=== PATIENT | female | born 1955 | race Caucasian/White ===

== ENCOUNTER → 2018-05-17 | Outpatient (CLI) | payer OTHER ==
--- NOTE | 2018-05-19 10:51 | MM ---
Reason for exam: screening (asymptomatic). Last mammogram was performed 1 year and 10 months ago. History: Patient is postmenopausal. Family history of breast cancer in paternal aunt and breast cancer in paternal cousin. Physical Findings: A clinical breast exam by your physician is recommended on an annual basis and results should be correlated with mammographic findings. MG 3D Screening Mammo W/Cad Bilateral CC and MLO view(s) were taken. Prior study comparison: July 22, 2016, bilateral MG 3d screening mammo w/cad. September 25, 2014, bilateral MG screening mammo w CAD. The breast tissue is heterogeneously dense. This may lower the sensitivity of mammography. No suspicious abnormality. No significant changes when compared with prior studies. ASSESSMENT: Negative, BI-RAD 1 RECOMMENDATION: Routine screening mammogram of both breasts in 1 year.
== END | disposition home or self-care (01) ==
LOC: RADMAMWWP 12:35
PROVIDERS: ATTEND Family Medicine
DX: Z12.31 Encounter for screening mammogram for malignant neoplasm of breast (principal)
CPT/HCPCS: 77063; 77067

== ENCOUNTER 2019-02-20 12:43 | Emergency (ER) | payer OTHER ==
[2019-02-20 12:54] VITALS: RESP 18
[2019-02-20] MEDS ORDERED: ONDANSETRON 4 MG/2 ML VIAL IVP STA (13:19)
[2019-02-20] MEDS ORDERED: KETOROLAC 30 MG/ML 1 ML VIAL IVP STA (13:19)
[2019-02-20] MEDS ORDERED: SODIUM CHLORIDE 0.9% 1,000 ML IV STA ×2 (13:19)
[2019-02-20] MEDS ORDERED: MORPHINE SULFATE 4 MG/ML SYRINGE IV STA (13:19)
[2019-02-20 13:34] LABS: Basophils # (A) 0.1 k/uL (0-0.2); Basophils % (A) 1 %; Eosinophils # (A) 0.2 k/uL (0-0.7); Eosinophils % (A) 4 %; HCT 44.6 % (34.0-46.0); HGB 14.4 gm/dL (11.4-16.0); Lymphocytes # (A) 2.1 k/uL (1.0-4.8); Lymphocytes % (A) 35 %; MCH 27.5 pg (25.0-35.0); MCHC 32.3 g/dL (31.0-37.0); MCV 85.2 fL (80.0-100.0); Mean Platelet Volume 7.2; Monocytes # (A) 0.2 k/uL (0-1.0); Monocytes % (A) 4 %; Neutrophils # (A) 3.3 k/uL (1.3-7.7); Neutrophils % (A) 54 %; Platelet Count 307 k/uL (150-450); RBC 5.23 m/uL (3.80-5.40); RDW 14.2 % (11.5-15.5); WBC 6.1 k/uL (3.8-10.6)
--- NOTE | 2019-02-20 13:35 | ED ---
General Adult HPI - General Chief complaint: Back Pain/Injury Stated complaint: back pain Time Seen by Provider: 02/20/19 13:03 Source: patient, RN notes reviewed, old records reviewed Mode of arrival: ambulatory Limitations: physical limitation - History of Present Illness Initial comments: Patient is a 63-year-old female presents today with complaints of right-sided back pain. She states that the symptoms started last night and progressed to be more severe today. She states she is unable to control. She states that she was going to a movie with her and was unable to sit i for a long period of time. Patient states that she was lifting up child 2 days ago which could've started her pain. She was doing a lot of bending at the waist. And picking up. Patient states that the pain is not exacerbated with walking or movement. She is concerning for possibly related to a kidney stone she's had them before with similar pain such as this. She denies any changes in urination or bowel habits. - Related Data Previous Rx's Medication Instructions Recorded Cyclobenzaprine [Flexeril] 10 mg PO TID #12 tab 02/20/19 Dexamethasone 0.75 mg PO DAILY #12 tab 02/20/19 Ibuprofen [Motrin] 600 mg PO Q6HR PRN #20 tab 02/20/19 Allergies Allergy/AdvReac Type Severity Reaction Status Date / Time No Known Allergies Allergy Verified 02/20/19 12:54 Review of Systems ROS Statement: Those systems with pertinent positive or pertinent negative responses have been documented in the HPI. ROS Other: All systems not noted in ROS Statement are negative. Past Medical History Past Medical History: Diabetes Mellitus History of Any Multi-Drug Resistant Organisms: None Reported Additional Past Surgical History / Comment(s): heart ablation Past Psychological History: No Psychological Hx Reported Smoking Status: Never smoker Past Alcohol Use History: None Reported Past Drug Use History: None Reported General Exam - General Exam Comments Initial Comments: This 63-year-old female. Alert and oriented. No distress. Limitations: physical limitation General appearance: alert, in no apparent distress Head exam: Present: atraumatic, normocephalic, normal inspection Eye exam: Present: normal appearance, PERRL, EOMI. Absent: scleral icterus, conjunctival injection, periorbital swelling ENT exam: Present: normal exam, mucous membranes moist Neck exam: Present: normal inspection. Absent: tenderness, meningismus, lymphadenopathy Respiratory exam: Present: normal lung sounds bilaterally. Absent: respiratory distress, wheezes, rales, rhonchi, stridor Cardiovascular Exam: Present: regular rate, normal rhythm, normal heart sounds. Absent: systolic murmur, diastolic murmur, rubs, gallop, clicks GI/Abdominal exam: Present: soft, normal bowel sounds. Absent: distended, tenderness, guarding, rebound, rigid Extremities exam: Present: normal inspection, full ROM, normal capillary refill. Absent: tenderness, pedal edema, joint swelling, calf tenderness Back exam: Present: normal inspection Neurological exam: Present: alert, oriented X3, CN II-XII intact Psychiatric exam: Present: normal affect, normal mood Skin exam: Present: warm, dry, intact, normal color. Absent: rash Course Vital Signs 02/20/19 12:51 Temperature 97.9 F Pulse Rate 79 Respiratory 18 Rate Blood Pressure 129/69 O2 Sat by Pulse 100 Oximetry Medical Decision Making - Medical Decision Making Patient is a 63-year-old feel presents for his with back pain and spasming. Patient symptoms started after she was doing lifting of tile. Patient at this time patient's labwork was reviewed and were normal. Urinalysis shows no blood or infection. Unlikely for kidney stone. Patient will be discharged at this time with prescription for Flexeril and ibuprofen. - Lab Data Result diagrams: 02/20/19 13:21 02/20/19 13:21 Lab Results 02/20/19 02/20/19 02/20/19 Range/Units 13:21 13:21 13:21 WBC 6.1 (3.8-10.6) k/uL RBC 5.23 (3.80-5.40) m/uL Hgb 14.4 (11.4-16.0) gm/dL Hct 44.6 (34.0-46.0) % MCV 85.2 (80.0-100.0) fL MCH 27.5 (25.0-35.0) pg MCHC 32.3 (31.0-37.0) g/dL RDW 14.2 (11.5-15.5) % Plt Count 307 (150-450) k/uL Neutrophils % 54 % Lymphocytes % 35 % Monocytes % 4 % Eosinophils % 4 % Basophils % 1 % Neutrophils # 3.3 (1.3-7.7) k/uL Lymphocytes # 2.1 (1.0-4.8) k/uL Monocytes # 0.2 (0-1.0) k/uL Eosinophils # 0.2 (0-0.7) k/uL Basophils # 0.1 (0-0.2) k/uL PT 10.0 (9.0-12.0) sec INR 0.9 (<1.2) APTT 21.8 L (22.0-30.0) sec Sodium 141 (137-145) mmol/L Potassium 4.0 (3.5-5.1) mmol/L Chloride 106 (98-107) mmol/L Carbon Dioxide 25 (22-30) mmol/L Anion Gap 10 mmol/L BUN 11 (7-17) mg/dL Creatinine 0.65 (0.52-1.04) mg/dL Est GFR (CKD-EPI)AfAm >90 (>60 ml/min/1.73 sqM) Est GFR (CKD-EPI)NonAf >90 (>60 ml/min/1.73 sqM) Glucose 176 H (74-99) mg/dL Calcium 10.7 H (8.4-10.2) mg/dL Total Bilirubin 0.5 (0.2-1.3) mg/dL AST 26 (14-36) U/L ALT 38 (9-52) U/L Alkaline Phosphatase 54 (38-126) U/L Total Protein 7.5 (6.3-8.2) g/dL Albumin 4.8 (3.5-5.0) g/dL Amylase 99 (30-110) U/L Lipase 223 (23-300) U/L Urine Color Urine Appearance (Clear) Urine pH (5.0-8.0) Ur Specific [place] (1.001-1.035) Urine Protein (Negative) Urine Glucose (UA) (Negative) Urine Ketones (Negative) Urine Blood (Negative) Urine Nitrite (Negative) Urine Bilirubin (Negative) Urine Urobilinogen (<2.0) mg/dL Ur Leukocyte Esterase (Negative) 02/20/19 Range/Units 13:21 WBC (3.8-10.6) k/uL RBC (3.80-5.40) m/uL Hgb (11.4-16.0) gm/dL Hct (34.0-46.0) % MCV (80.0-100.0) fL MCH (25.0-35.0) pg MCHC (31.0-37.0) g/dL RDW (11.5-15.5) % Plt Count (150-450) k/uL Neutrophils % % Lymphocytes % % Monocytes % % Eosinophils % % Basophils % % Neutrophils # (1.3-7.7) k/uL Lymphocytes # (1.0-4.8) k/uL Monocytes # (0-1.0) k/uL Eosinophils # (0-0.7) k/uL Basophils # (0-0.2) k/uL PT (9.0-12.0) sec INR (<1.2) APTT (22.0-30.0) sec Sodium (137-145) mmol/L Potassium (3.5-5.1) mmol/L Chloride (98-107) mmol/L Carbon Dioxide (22-30) mmol/L Anion Gap mmol/L BUN (7-17) mg/dL Creatinine (0.52-1.04) mg/dL Est GFR (CKD-EPI)AfAm (>60 ml/min/1.73 sqM) Est GFR (CKD-EPI)NonAf (>60 ml/min/1.73 sqM) Glucose (74-99) mg/dL Calcium (8.4-10.2) mg/dL Total Bilirubin (0.2-1.3) mg/dL AST (14-36) U/L ALT (9-52) U/L Alkaline Phosphatase (38-126) U/L Total Protein (6.3-8.2) g/dL Albumin (3.5-5.0) g/dL Amylase (30-110) U/L Lipase (23-300) U/L Urine Color Light Yellow Urine Appearance Clear (Clear) Urine pH 5.0 (5.0-8.0) Ur Specific [place] 1.029 (1.001-1.035) Urine Protein Negative (Negative) Urine Glucose (UA) 4+ H (Negative) Urine Ketones Negative (Negative) Urine Blood Negative (Negative) Urine Nitrite Negative (Negative) Urine Bilirubin Negative (Negative) Urine Urobilinogen <2.0 (<2.0) mg/dL Ur Leukocyte Esterase Negative (Negative) Disposition Clinical Impression: Muscle spasm Disposition: HOME SELF-CARE Condition: Good Instructions (If sedation given, give patient instructions): Acute Low Back Pain (ED) Additional Instructions: Patient advised to follow-up with PCP. Return to the emergency department if any alarming signs or symptoms occur. Prescriptions: Dexamethasone 0.75 mg PO DAILY #12 tab Cyclobenzaprine [Flexeril] 10 mg PO TID #12 tab Ibuprofen [Motrin] 600 mg PO Q6HR PRN #20 tab PRN Reason: Pain Is patient prescribed a controlled substance at d/c from ED?: No Referrals: Maco Cramer MD [Primary Care Provider] - 1-2 days Time of Disposition: 15:12
[2019-02-20 13:37] LABS: Appearance,Urine Clear (Clear); Bilirubin,Urine Negative (Negative); Blood,Urine Negative (Negative); Color,Urine Light Yellow; Glucose,Urine (UA) 4+ (Negative); Ketones,Urine Negative (Negative); Leukocyte Esterase,Urine Negative (Negative); Nitrite,Urine Negative (Negative); Protein,Urine Negative (Negative); Specific Gravity,Urine 1.029 (1.001-1.035); Urobilinogen,Urine <2.0 mg/dL (<2.0)
[2019-02-20 13:46] LABS: ALT 38 U/L (9-52); AST 26 U/L (14-36); Albumin 4.8 g/dL (3.5-5.0); Alkaline Phosphatase 54 U/L (38-126); Amylase 99 U/L (30-110); Anion Gap 10 mmol/L; Blood Urea Nitrogen 11 mg/dL (7-17); Calcium 10.7 mg/dL (8.4-10.2); Carbon Dioxide 25 mmol/L (22-30); Chloride 106 mmol/L (98-107); Glucose 176 mg/dL (74-99); Lipase 223 U/L (23-300); Sodium 141 mmol/L (137-145); Total Bilirubin 0.5 mg/dL (0.2-1.3); Total Protein 7.5 g/dL (6.3-8.2)
[2019-02-20 13:54] LABS: INR 0.9 (<1.2)
[2019-02-20 13:58] LABS: Partial Thromboplastin Time 21.8 sec (22.0-30.0)
--- NOTE | 2019-02-20 14:12 | XR ---
EXAMINATION TYPE: XR KUB DATE OF EXAM: 02/20/2019 COMPARISON: NONE HISTORY: Back pain TECHNIQUE: 2 views upright FINDINGS: There is no sign of intestinal obstruction or pneumoperitoneum. Fecal pattern is fairly nor mal. Lung bases are clear. There are no pathologic calcifications over the kidneys. There is no evide nce of a mass. IMPRESSION: Nonacute abdomen.
[2019-02-20] MEDS ORDERED: ACET/COD 300 MG/30 MG STARTER PACK 6 TAB BTL PO STA (15:12)
[2019-02-20 15:29] VITALS: BP 110/58; PULSE 73; TEMP 98
== END 2019-02-20 15:30 | disposition home or self-care (01) ==
LOC: EC 12:43
DX: M62.830 Muscle spasm of back (principal); X50.9XXA Other and unspecified overexertion or strenuous movements or postures, initial encounter
CPT/HCPCS: 36415; 80053; 82150; 83690; 85025; 85610; 85730; 81003; 74018; 99284; 96374; 96375 ×2; 96361 ×2; J2270; J2405; J1885

== ENCOUNTER → 2020-10-08 | Outpatient (CLI) | payer BC ==
--- NOTE | 2020-10-09 11:26 | MM ---
Reason for exam: screening (asymptomatic). Last mammogram was performed 2 years and 5 months ago. History: Patient is postmenopausal. Family history of breast cancer in paternal aunt and breast cancer in paternal cousin. Physical Findings: A clinical breast exam by your physician is recommended on an annual basis and results should be correlated with mammographic findings. MG 3D Screening Mammo W/Cad Bilateral CC and MLO view(s) were taken. Prior study comparison: May 17, 2018, bilateral MG 3d screening mammo w/cad. July 22, 2016, bilateral MG 3d screening mammo w/cad. There are scattered fibroglandular densities. There are benign appearing round calcifications bilaterally. Benign vascular calcifications left axilla. There is no discrete abnormality. ASSESSMENT: Benign, BI-RAD 2 RECOMMENDATION: Routine screening mammogram of both breasts in 1 year.
== END | disposition home or self-care (01) ==
LOC: RADMAMWWP 10:18
PROVIDERS: ATTEND Family Medicine
DX: Z12.31 Encounter for screening mammogram for malignant neoplasm of breast (principal)
CPT/HCPCS: 77063; 77067

== ENCOUNTER 2021-01-16 23:31 | Observation (INO) | payer BC ==
[2021-01-17] MEDS ORDERED: GLUCAGON 1 MG/ML VIAL IVP STA ×2 (00:08→00:31)
--- NOTE | 2021-01-17 00:17 | ED ---
General Adult HPI - General Chief complaint: Chest Pain Stated complaint: Chest Pain Time Seen by Provider: 01/16/21 23:43 Source: patient Mode of arrival: ambulatory Limitations: no limitations - History of Present Illness Initial comments: This patient is a 65-year-old woman who presents with complaint of chest pain. She states that it came on tonight when she was eating. She swallowed a piece of chicken and felt that it lodged in the substernal area. She attempted to drink something, having the pain and then regurgitated the water. Patient st ates that when she tries to swallow her saliva she ends up regurgitating mat. If she is not in the process of trying to eat or drink something she is not having much discomfort at all. Patient did not have any anginal type symptoms. -: hour(s) Location: chest Radiation: non-radiation Quality: aching Consistency: intermittent Improves with: none Worsens with: eating Associated Symptoms: denies other symptoms Treatments Prior to Arrival: none - Related Data Previous Rx's Medication Instructions Recorded Cyclobenzaprine [Flexeril] 10 mg PO TID #12 tab 02/20/19 Ibuprofen [Motrin] 600 mg PO Q6HR PRN #20 tab 02/20/19 dexAMETHasone [Dexamethasone] 0.75 mg PO DAILY #12 tab 02/20/19 Allergies Allergy/AdvReac Type Severity Reaction Status Date / Time No Known Allergies Allergy Verified 01/16/21 23:36 Review of Systems ROS Statement: Those systems with pertinent positive or pertinent negative responses have been documented in the HPI. ROS Other: All systems not noted in ROS Statement are negative. Constitutional: Denies: fever, chills ENT: Denies: throat pain Respiratory: Denies: cough, dyspnea Cardiovascular: Reports: as per HPI, chest pain. Denies: palpitations, orthopnea, edema, syncope Gastrointestinal: Denies: abdominal pain, nausea, vomiting, diarrhea Genitourinary: Denies: dysuria, hematuria Musculoskeletal: Denies: back pain Skin: Denies: rash Neurological: Denies: headache Past Medical History Past Medical History: Diabetes Mellitus History of Any Multi-Drug Resistant Organisms: None Reported Past Surgical History: Cardiac Ablation Additional Past Surgical History / Comment(s): eye lid surgery Past Psychological History: No Psychological Hx Reported Smoking Status: Never smoker Past Alcohol Use History: None Reported Past Drug Use History: None Reported General Exam Limitations: no limitations General appearance: alert, in no apparent distress Head exam: Present: atraumatic, normocephalic Eye exam: Present: normal appearance. Absent: scleral icterus, conjunctival injection ENT exam: Present: normal oropharynx Neck exam: Present: normal inspection Respiratory exam: Present: normal lung sounds bilaterally. Absent: respiratory distress, wheezes, rales, rhonchi, stridor Cardiovascular Exam: Present: regular rate, normal rhythm, normal heart sounds. Absent: systolic murmur, diastolic murmur, rubs, gallop GI/Abdominal exam: Present: soft. Absent: distended, tenderness, guarding, rebound, rigid, mass, pulsatile mass, hernia Extremities exam: Present: normal inspection, normal capillary refill. Absent: pedal edema, calf tenderness Back exam: Present: normal inspection. Absent: CVA tenderness (R), CVA tenderness (L) Neurological exam: Present: alert Skin exam: Present: warm, dry, intact, normal color. Absent: rash Course Vital Signs 01/16/21 23:34 Temperature 98.1 F Pulse Rate 88 Respiratory 20 Rate Blood Pressure 159/84 O2 Sat by Pulse 99 Oximetry EKG Findings - EKG Results: EKG: interpreted by MARGY DUMONT, sinus rhythm (Rate 85 bpm), normal axis, normal QRS, normal ST/T, no acute changes Disposition Clinical Impression: Food impaction of esophagus Disposition: ADMITTED IP TO THIS HOSP Condition: Good Instructions (If sedation given, give patient instructions): Food Impaction (ED) Is patient prescribed a controlled substance at d/c from ED?: No Referrals: Maco Cramer MD [Primary Care Provider] - 1-2 days Ric Meyer MD [STAFF PHYSICIAN] - 1-2 days
[2021-01-17] MEDS ORDERED: MORPHINE SULFATE 4 MG/ML SYRINGE IV STA (01:23)
[2021-01-17] MEDS ORDERED: NALOXONE 0.4 MG/ML 1 ML VIAL IV PRN (01:49)
[2021-01-17] MEDS ORDERED: SODIUM CHLORIDE 0.9% 1,000 ML IV SCH (02:00)
[2021-01-17 02:20] LABS: African American GFR (CKD) >90 (>60 ml/min/1.73 sqM); Anion Gap 12 mmol/L; Blood Urea Nitrogen 14 mg/dL (7-17); Calcium 10.3 mg/dL (8.4-10.2); Carbon Dioxide 20 mmol/L (22-30); Chloride 109 mmol/L (98-107); Glucose 228 mg/dL (74-99); Non-African American GFR(CKD) >90 (>60 ml/min/1.73 sqM); Potassium 3.8 mmol/L (3.5-5.1); Sodium 141 mmol/L (137-145)
[2021-01-17 02:21] LABS: Prothrombin Time 10.8 sec (9.0-12.0)
[2021-01-17 02:27] LABS: Basophils # (A) 0.1 k/uL (0-0.2); Basophils % (A) 0 %; Eosinophils # (A) 0.1 k/uL (0-0.7); Eosinophils % (A) 1 %; HCT 42.8 % (34.0-46.0); HGB 14.3 gm/dL (11.4-16.0); Lymphocytes # (A) 1.6 k/uL (1.0-4.8); Lymphocytes % (A) 11 %; MCHC 33.4 g/dL (31.0-37.0); MCV 86.8 fL (80.0-100.0); Mean Platelet Volume 6.5; Monocytes # (A) 0.7 k/uL (0-1.0); Monocytes % (A) 5 %; Neutrophils # (A) 11.8 k/uL (1.3-7.7); Neutrophils % (A) 83 %; Platelet Count 257 k/uL (150-450); RBC 4.93 m/uL (3.80-5.40); RDW 13.7 % (11.5-15.5); WBC 14.3 k/uL (3.8-10.6)
[2021-01-17 02:42] LABS: Glucose,Whole Blood 172 mg/dL (75-99)
[2021-01-17] MEDS ORDERED: PROPOFOL 10 MG/ML 20 ML VIAL IV ONE (08:04)
[2021-01-17] MEDS ORDERED: LIDOCAINE 1% INJ 10MG/ML (20 ML MDV) ONE (08:04)
[2021-01-17] MEDS ORDERED: IV FLUID CONTINUATION 1,000 ML IV ONE (08:05)
--- NOTE | 2021-01-17 08:14 | P.CONS ---
History of Present Illness - Reason for Consult Consult date: 01/17/21 Esophageal foreign body Requesting physician: Jay Engle - Chief Complaint Difficulty swallowing - History of Present Illness 65-year-old female with a medical history significant for diabetes mellitus, dyslipidemia and reflux who presented to the hospital for evaluation difficulty swallowing secondary to a esophageal foreign body. She reports difficulty starting at 6:30 last night. The patient was eating chicken and subsequently developed difficulty swallowing and associated chest pain. She felt like the food was stuck at the substernal area and was unable to hold down any water or drink anything as it was regurgitated. She continued having issues managing her saliva until last night and currently is able to swallow and not spitting up. She reports having issues over the past year with the sensation of food sticking. She was given a trial of omeprazole therapy but states that she did not like the medication and currently takes Rolaids as needed for her symptoms . No prior EGD, colonoscopy or episode of foreign body. Review of Systems REVIEW OF SYSTEMS: CONSTITUTIONAL: Denies any fevers, chills, weight change or fatigue. CARDIOVASCULAR: Denies any palpitations high or low blood pressures, but did have some chest discomfort associated with her symptoms which is mild. RESPIRATORY: Denies any shortness of breath, hemoptysis or cough. GENITOURINARY: No dysuria or hematuria. MUSCULOSKELETAL: No weakness reported. SKIN: Denies any new rashes or lesions, jaundice or pallor. PSYCHIATRIC: Denies any depression or anxiety. NEUROLOGY: Denies headache, denies any new focal deficits. EARS/NOSE/THROAT: No recent hearing change, congestion, nasal discharge or sore throat. EYES: No pain in eyes, discharge or change in vision. GASTROINTESTINAL: As per HPI. Past Medical History Past Medical History: Diabetes Mellitus History of Any Multi-Drug Resistant Organisms: None Reported Past Surgical History: Cardiac Ablation, Tonsillectomy Additional Past Surgical History / Comment(s): eye lid surgery Past Psychological History: No Psychological Hx Reported Smoking Status: Never smoker Past Alcohol Use History: None Reported Past Drug Use History: None Reported Additional History: Family history: Reviewed with the patient noncontributory to current medical presentation. Medications and Allergies Home Medications Medication Instructions Recorded Confirmed Type Ascorbic Acid [Vitamin C] 500 mg PO HS 01/17/21 01/17/21 History Cholecalciferol [Vitamin D3 (25 25 mcg PO HS 01/17/21 01/17/21 History Mcg = 1000 Iu)] Empagliflozin [Jardiance] 25 mg PO DAILY 01/17/21 01/17/21 History Insulin Degludec/Liraglutide 34 units SQ DAILY 01/17/21 01/17/21 History [Xultophy 100 Unit-3.6MG/ml Pen] Losartan [Cozaar] 25 mg PO HS 01/17/21 01/17/21 History Pravastatin Sodium [Pravachol] 40 mg PO HS 01/17/21 01/17/21 History sitaGLIPtin PHOS/metFORMIN HCL 50 - 1,000 mg PO BID 01/17/21 01/17/21 History [Janumet 50-1,000 mg Tablet] Allergies Allergy/AdvReac Type Severity Reaction Status Date / Time No Known Allergies Allergy Verified 01/17/21 07:43 Physical Exam Vitals: Vital Signs Temp Pulse Pulse Resp BP BP Pulse Ox 01/17/21 05:10 98.9 F 70 20 113/62 96 01/17/21 02:30 98.5 F 82 20 144/80 96 01/16/21 23:34 98.1 F 88 20 159/84 99 Intake and Output 01/16/21 01/17/21 01/17/21 22:59 06:59 14:59 Intake Total 0 700 Balance 0 700 Intake: IV 700 Oral 0 Other: # Voids 1 Weight 86.183 kg On physical examination, patient appears comfortable in no apparent distress. HEAD: Normocephalic, atraumatic. EYES: No scleral icterus. No conjunctival injection. MOUTH: No lesions, tongue midline. NECK: Trachea midline, no gross abnormalities. CHEST: Clear to auscultation with no wheezing or rhonchi appreciated. HEART: Regular rate and rhythm. ABDOMEN: Soft, nontender to palpation. Bowel sounds are positive. No organomegaly. No guarding or rigidity. EXTREMITIES: No pedal edema. SKIN: No rashes, no jaundice. NEUROLOGIC: Alert and oriented x3. No focal deficits. Results CBC & Chem 7: 01/17/21 02:00 01/17/21 02:00 Labs: Abnormal Lab Results - Last 24 Hours (Table) 01/17/21 01/17/21 01/17/21 Range/Units 02:00 02:00 02:30 WBC 14.3 H (3.8-10.6) k/uL Neutrophils # 11.8 H (1.3-7.7) k/uL Chloride 109 H (98-107) mmol/L Carbon Dioxide 20 L (22-30) mmol/L Glucose 228 H (74-99) mg/dL POC Glucose (mg/dL) 172 H (75-99) mg/dL Calcium 10.3 H (8.4-10.2) mg/dL Assessment and Plan (1) Esophageal dysphagia Narrative/Plan: 65-year-old female with long-standing history of esophageal dysphagia presenting for esophageal foreign body. No prior episodes of esophageal foreign body she has been having difficulty swallowing over the past year usually relieved with belching. She presented after eating chicken and subsequently having problems managing saliva with associated chest pressure. Current Visit: Yes Status: Acute Code(s): R13.10 - DYSPHAGIA, UNSPECIFIED SNOMED Code(s): 84029699 (2) Food impaction of esophagus Current Visit: Yes Status: Acute Code(s): T18.128A - FOOD IN ESOPHAGUS CAUSI NG OTHER INJURY, INITIAL ENCOUNTER SNOMED Code(s): 256330507 (3) GERD (gastroesophageal reflux disease) Current Visit: Yes Status: Acute Code(s): K21.9 - GASTRO-ESOPHAGEAL REFLUX DISEASE WITHOUT ESOPHAGITIS SNOMED Code(s): 447693124 Plan: Supportive care Nothing by mouth Plan for emergent EGD for further evaluation Would recommend patient initiated higher level of antacid therapy is currently she is only using Rolaids with daily PPI therapy Follow-up after hospitalization with GI for further management Thank you for allowing us to participate in the care of the patient
--- NOTE | 2021-01-17 08:31 | P.PCN ---
Date of Procedure: 01/17/21 Description of Procedure: BRIEF HISTORY: 65-year-old female with a medical history significant for diabetes mellitus, dyslipidemia and reflux who presented to the hospital for evaluation difficulty swallowing secondary to a esophageal foreign body. She reports difficulty starting at 6:30 last night. The patient was eating chicken and subsequently developed difficulty swallowing and associated chest pain. She felt like the food was stuck at the substernal area and was unable to hold down any water or drink anything as it was regurgitated. She continued having issues managing her saliva until last night and currently is able to swallow and not spitting up. She reports having issues over the past year with the sensation of food sticking. She was given a trial of omeprazole therapy but states that she did not like the medication and currently takes Rolaids as needed for her symptoms . No prior EGD, colonoscopy or episode of foreign body. PROCEDURE PERFORMED: Esophagogastroduodenoscopy with foreign body removal and EGD. PREOPERATIVE DIAGNOSIS: Esophageal foreign body, esophageal dysphagia. ESTIMATED BLOOD LOSS: Minimal. IV sedation per anesthesia. PROCEDURE: After informed consent was obtained, the patient was brought into the endoscopy unit. IV sedation was administered by Anesthesia under continuous monitoring. Initially the Olympus GIF-190 video endoscope was inserted into the mouth. Esophagus intubated without any difficulty. It was gradually advanced into esophagus where a piece of chicken was found in the distal esophagus. The foreign body was able to be pushed into the stomach with gentle pressure. The endoscope was then advanced into the stomach and duodenum and carefully examined. The bulb and the second part of the duodenum appeared normal, with biopsies taken. The scope at this time was withdrawn to the stomach, adequately insufflated with air, and upon careful examination, mucosa of the antrum, body, cardia and the fundus appeared normal, Except for some residual food debris in the fundus of the stomach with biopsies of the antrum and body taken. The scope was then withdrawn into the esophagus. The GE junction was located at 36 cm from the incisors With biopsies of the lower esophagus taken. There was some inflammation in the lower esophagus consistent with LA grade a esophagitis likely related to foreign body as well as a small 2 cm hiatal hernia and a benign-appearing distal esophageal stricture. There were no erosions or ulcerations seen and the patient tolerated the procedure well. IMPRESSION: 1. Esophageal foreign body, removed from the esophagus with gentle pressure. 2. LA grade a esophagitis. 3. Small hiatal hernia. 4. Benign-appearing distal esophageal stricture. 5. Biopsies of the duodenum, antrum body and lower esophagus. RECOMMENDATIONS: The findings of this examination were discussed with the patient and her family. Okay to resume diet. Okay to resume medications. Once daily PPI therapy. Recommend repeat EGD in 4-6 weeks to check for healing of esophagitis and for esophageal balloon dilation at that time. Await pathology from biopsies. Okay for discharge home when otherwise medically stable.
[2021-01-17 08:55] VITALS: TEMP 97.9
[2021-01-17 08:56] VITALS: BP 119/68; PULSE 81; RESP 16
--- NOTE | 2021-01-17 11:41 | P.HPIM ---
History of Present Illness H&P Date: 01/17/21 Chief Complaint: Difficulty in swallowing Mr. Davis is a 65-year-old female with a past medical history of diabetes mellitus, GERD, hyperlipidemia coming into the hospital with a chief complaint of difficulty in swallowing. Patient states that she was eating chicken around 6:30 last night and she felt that she had it stuck in the middle of her chest. Patient was feeling pressure in her substernal area. So she tried to drink water but she had more problem and felt like she was having regurgitation. She was having increased salivation and was not able to swallow and started spitting up. She states she has been having issues with swallowing for the past 2-3 months. Patient denies having any weight loss. No fever or night sweats. Patient has long-standing history of diabetes and she states that her hemoglobin A1c is around 7-8. She is on insulin and oral hypoglycemic agents. On review of systems patient denied having any fevers chills or rigors, no chest pain or palpitations. No cough or difficulty in breathing. No abdominal pain, diarrhea or constipation. She denies having any dysuria or hematuria. In the ER patient had an EKG showing normal sinus rhythm and her vitals within normal limits. Lack showing increased white count at 14.3, hemoglobin 14.3, platelets 257. Sodium 141, potassium 3.8, chloride 100, bicarbonate 20, BMI 40 creatinine 0.59. Review of Systems REVIEW OF SYSTEMS: CONSTITUTIONAL: No fever, no malaise, no fatigue. HEENT: No recent visual problems or hearing problems. Denied any sore throat. CARDIOVASCULAR: No chest pain, orthopnea, PND, no palpitations, no syncope. PULMONARY: No shortness of breath, no cough, no hemoptysis. GASTROINTESTINAL:As above NEUROLOGICAL: No headaches, no weakness, no numbness. HEMATOLOGICAL: Denies any bleeding or petechiae. GENITOURINARY: Denies any burning micturition, frequency, or urgency. MUSCULOSKELETAL/RHEUMATOLOGICAL: No joint problems ENDOCRINE: Denies any polyuria or polydipsia. The rest of the 14-point review of systems is negative. Past Medical History Past Medical History: Diabetes Mellitus History of Any Multi-Drug Resistant Organisms: None Reported Past Surgical History: Cardiac Ablation, Tonsillectomy Additional Past Surgical History / Comment(s): eye lid surgery Past Psychological History: No Psychological Hx Reported Smoking Status: Never smoker Past Alcohol Use History: None Reported Past Drug Use History: None Reported Medications and Allergies Home Medications Medication Instructions Recorded Confirmed Type Ascorbic Acid [Vitamin C] 500 mg PO HS 01/17/21 01/17/21 History Cholecalciferol [Vitamin D3 (25 25 mcg PO HS 01/17/21 01/17/21 History Mcg = 1000 Iu)] Empagliflozin [Jardiance] 25 mg PO DAILY 01/17/21 01/17/21 History Insulin Degludec/Liraglutide 34 units SQ DAILY 01/17/21 01/17/21 History [Xultophy 100 Unit-3.6MG/ml Pen] Losartan [Cozaar] 25 mg PO HS 01/17/21 01/17/21 History Pravastatin Sodium [Pravachol] 40 mg PO HS 01/17/21 01/17/21 History sitaGLIPtin PHOS/metFORMIN HCL 50 - 1,000 mg PO BID 01/17/21 01/17/21 History [Janumet 50-1,000 mg Tablet] Allergies Allergy/AdvReac Type Severity Reaction Status Date / Time No Known Allergies Allergy Verified 01/17/21 07:43 Physical Exam Vitals: Vital Signs Temp Pulse Pulse Resp BP BP Pulse Ox 01/17/21 08:50 81 16 119/68 96 01/17/21 08:35 97.9 F 80 18 108/62 95 01/17/21 05:10 98.9 F 70 20 113/62 96 01/17/21 02:30 98.5 F 82 20 144/80 96 01/16/21 23:34 98.1 F 88 20 159/84 99 Intake and Output 01/16/21 01/17/21 01/17/21 22:59 06:59 14:59 Intake Total 0 150 Balance 0 150 Intake: IV 150 Oral 0 Other: Voiding Method Toilet # Voids 1 1 Weight 86.183 kg PHYSICAL EXAMINATION: GENERAL: The patient is alert and oriented x3, not in any acute distress. HEENT: Pupils are round and equally reacting to light. EOMI. No scleral icterus. CARDIOVASCULAR: S1 and S2 present. PULMONARY: Chest is clear to auscultation, no wheezing or crackles. ABDOMEN: Soft, nontender, nondistended, normoactive bowel sounds. No palpable organomegaly. MUSCULOSKELETAL: No joint swelling or deformity. EXTREMITIES: No cyanosis, clubbing, or pedal edema. NEUROLOGICAL: Gross neurological examination did not reveal any focal deficits. SKIN: No rash Results CBC & Chem 7: 01/17/21 02:00 01/17/21 02:00 Labs: Abnormal Lab Results - Last 24 Hours (Table) 01/17/21 01/17/21 01/17/21 Range/Units 02:00 02:00 02:30 WBC 14.3 H (3.8-10.6) k/uL Neutrophils # 11.8 H (1.3-7.7) k/uL Chloride 109 H (98-107) mmol/L Carbon Dioxide 20 L (22-30) mmol/L Glucose 228 H (74-99) mg/dL POC Glucose (mg/dL) 172 H (75-99) mg/dL Calcium 10.3 H (8.4-10.2) mg/dL Thrombosis Risk Factor Assmnt - Choose All That Apply Any of the Below Risk Factors Present?: Yes Each Factor Represents 1 point: Obesity (BMI >25) Other Risk Factors: Yes Each Risk Factor Represents 2 Points: Age 61-74 years Other congenital or acquired thrombophilia - If yes, enter type in comment: No Thrombosis Risk Factor Assessment Total Risk Factor Score: 3 Thrombosis Risk Factor Assessment Level: Moderate Risk Assessment and Plan Assessment: ASSESSMENT Esophageal food impaction Status post removal of foreign body Grad A esophagitis Esophageal stricture Small hiatal hernia Type 2 diabetes mellitus Leukocytosis PLAN: Patient had removal of the foreign body by Dr. Meyer this morning. Biopsies were taken and pathology pending. Patient is able to tolerate by mouth diet without any issues. She is to be started on proton pump inhibitors and follow up with GI in 2 weeks.The results were discussed with the patient in detail. She is advised to follow up with GI in 2 weeks. Patient is being discharged home.
--- NOTE | 2021-01-17 11:46 | P.DS ---
Providers Date of admission: 01/17/21 01:49 Expected date of discharge: 01/17/21 Attending physician: Chun Faith Consults: 01/17/21 08:47 Consult Physician Routine Consulting Provider: Ric Meyer Consult Reason/Comments: esophageal food impaction Do you want consulting provider notified?: Already Contacted Primary care physician: Maco Brannon [facility] Course: Mr. Davis is a 65-year-old female with a past medical history of diabetes mellitus, GERD, hyperlipidemia coming into the hospital with a chief complaint of difficulty in swallowing. Patient states that she was eating chicken around 6:30 last night and she felt that she had it stuck in the middle of her chest. Patient was feeling pressure in her substernal area. So she tried to drink water but she had more problem and felt like she was having regurgitation. She was having increased salivation and was not able to swallow and started spitting up. She states she has been having issues with swallowing for the past 2-3 months. Patient denies having any weight loss. No fever or night sweats. Patient has long-standing history of diabetes and she states that her hemoglobin A1c is around 7-8. She is on insulin and oral hypoglycemic agents. On review of systems patient denied having any fevers chills or rigors, no chest pain or palpitations. No cough or difficulty in breathing. No abdominal pain, diarrhea or constipation. She denies having any dysuria or hematuria. In the ER patient had an EKG showing normal sinus rhythm and her vitals within normal limits. Lack showing increased white count at 14.3, hemoglobin 14.3, platelets 257. Sodium 141, potassium 3.8, chloride 100, bicarbonate 20, BMI 40 creatinine 0.59. Hospital course - Patient had removal of the foreign body by Dr. Meyer this morning. Biopsies were taken and pathology pending. Patient is able to tolerate by mouth diet without any issues. She is to be started on proton pump inhibitors and follow up with GI in 2 weeks.The results were discussed with the patient in detail. She is advised to follow up with GI in 2 weeks. Patient is being discharged home. DISCHARGE DIAGNOSIS Esophageal food impaction Status post removal of foreign body Grad A esophagitis Esophageal stricture Small hiatal hernia Type 2 diabetes mellitus Leukocytosis Follow-up: She is advised to follow up with GI in 2 weeks. Follow up with primary care physician in 2-3 days. Patient is being discharged home. Patient is advised to take her PPI and prescription sent to her pharmacy. Patient Condition at Discharge: Fair Plan - Discharge Summary Discharge Rx Participant: No New Discharge Prescriptions: New Pantoprazole Sodium [Protonix] 40 mg PO BID #60 tablet.dr Loyd Pravastatin Sodium [Pravachol] 40 mg PO HS sitaGLIPtin PHOS/metFORMIN HCL [Janumet 50-1,000 mg Tablet] 50 - 1,000 mg PO BID Losartan [Cozaar] 25 mg PO HS Empagliflozin [Jardiance] 25 mg PO DAILY Insulin Degludec/Liraglutide [Xultophy 100 Unit-3.6MG/ml Pen] 34 units SQ DAILY Cholecalciferol [Vitamin D3 (25 Mcg = 1000 Iu)] 25 mcg PO HS Ascorbic Acid [Vitamin C] 500 mg PO HS Discharge Medication List Ascorbic Acid [Vitamin C] 500 mg PO HS 01/17/21 [History] Cholecalciferol [Vitamin D3 (25 Mcg = 1000 Iu)] 25 mcg PO HS 01/17/21 [History] Empagliflozin [Jardiance] 25 mg PO DAILY 01/17/21 [History] Insulin Degludec/Liraglutide [Xultophy 100 Unit-3.6MG/ml Pen] 34 units SQ DAILY 01/17/21 [History] Losartan [Cozaar] 25 mg PO HS 01/17/21 [History] Pantoprazole Sodium [Protonix] 40 mg PO BID #60 tablet. 01/17/21 [Rx] Pravastatin Sodium [Pravachol] 40 mg PO HS 01/17/21 [History] sitaGLIPtin PHOS/metFORMIN HCL [Janumet 50-1,000 mg Tablet] 50 - 1,000 mg PO BID 01/17/21 [History] Follow up Appointment(s)/Referral(s): Maco Cramer MD [Primary Care Provider] - 1-2 days Ric Meyer MD [STAFF PHYSICIAN] - 4 Weeks Patient Instructions/Handouts: Food Impaction (ED)
[2021-01-17] MEDS ORDERED: PRAVASTATIN SODIUM 40 MG TAB PO SCH (21:00)
[2021-01-17] MEDS ORDERED: LOSARTAN 25 MG TAB PO SCH (21:00)
[2021-01-17] MEDS ORDERED: CHOLECALCIFEROL 25 MCG (1000 IU) TABLET PO SCH (21:00)
[2021-01-17] MEDS ORDERED: ASCORBIC ACID 500 MG TAB PO SCH (21:00)
[2021-01-18] MEDS ORDERED: INS SQ SCH (09:00)
[2021-01-18] MEDS ORDERED: EMPAGLIFLOZIN 25 MG PO SCH (09:00)
[2021-01-18] MEDS ORDERED: INSULIN DEGLUDEC SQ SCH (09:00)
[2021-01-18] MEDS ORDERED: LIRAGLUTIDE SQ SCH (09:00)
== END 2021-01-17 13:20 | disposition home or self-care (01) ==
LOC: EC 23:31 → 5NMEDONC 01-17 01:49
PROVIDERS: ADMIT Hospitalist; ATTEND Hospitalist
DX: T18.128A Food in esophagus causing other injury, initial encounter (principal); K22.2 Esophageal obstruction; K21.00 Gastro-esophageal reflux disease with esophagitis, without bleeding; K29.50 Unspecified chronic gastritis without bleeding; D72.829 Elevated white blood cell count, unspecified; E11.9 Type 2 diabetes mellitus without complications; E78.5 Hyperlipidemia, unspecified; K44.9 Diaphragmatic hernia without obstruction or gangrene; E66.9 Obesity, unspecified; Z68.28 Body mass index [BMI] 28.0-28.9, adult; Z79.4 Long term (current) use of insulin; Z79.899 Other long term (current) drug therapy; Z98.890 Other specified postprocedural states; Z20.822 Contact with and (suspected) exposure to COVID-19
CPT/HCPCS: 96376; 96374; 96375; 99285; 93005; 88305; 80048; 85025; 85610; 87635; 43239; 43247; G0378; J2270; J1610; J2001; J2704; 88312

== ENCOUNTER 2021-03-14 07:21 | Day surgery (SDC) | payer BC ==
[2021-03-12 15:58] VITALS: BMI 29.6
[~2021-03-14 07:21] MED LIST: LACTATED RINGERS 1,000 ML IV SCH; LIDOCAINE 1% (10MG/ML) FOR IV START INTRADERMA PRN
[2021-03-14 07:48] VITALS: TEMP 98.3
[2021-03-14 08:07] LABS: Glucose,Whole Blood 142 mg/dL (75-99)
[2021-03-14] MEDS ORDERED: PROPOFOL 10 MG/ML 20 ML VIAL IV ONE (08:52)
[2021-03-14] MEDS ORDERED: LIDOCAINE 1% INJ 10MG/ML (20 ML MDV) ONE (08:52)
[2021-03-14 09:24] VITALS: RESP 16
--- NOTE | 2021-03-14 09:28 | P.PCN ---
Date of Procedure: 03/14/21 Description of Procedure: BRIEF HISTORY: Patient is a 65-year-old female presents for outpatient esophagogastroduodenoscopy for evaluation of esophageal obstruction. Patient previously seen for esophageal foreign body in December. At that time patient was noted to have esophagitis, hiatal hernia, esophageal stricture with removal of foreign body. She is currently on Protonix and doing well. PROCEDURE PERFORMED: Esophagogastroduodenoscopy with biopsy and pbykzcu-vlo-oklrr balloon dilation of an esophageal stricture. PREOPERATIVE DIAGNOSIS: Esophageal obstruction, esophageal stricture, esophageal dysphagia. ESTIMATED BLOOD LOSS: Minimal. IV sedation per anesthesia. PROCEDURE: After informed consent was obtained, the patient was brought into the endoscopy unit. IV sedation was administered by Anesthesia under continuous monitoring. Initially the Olympus GIF-190 video endoscope was inserted into the mouth. Esophagus intubated without any difficulty. It was gradually advanced into the stomach and duodenum and carefully examined. The bulb and the second part of the duodenum appeared normal, with biopsies taken. The scope at this time was withdrawn to the stomach, adequately insufflated with air, and upon careful examination, mucosa of the antrum, body, cardia and the fundus appeared normal, with biopsies of the antrum and body taken. The scope was then withdrawn into the esophagus. The GE junction was located at 36 cm from the incisors, with a 2 cm hiatal hernia noted. Esophagus was significant for a benign-appearing distal esophageal stricture with serial dilation with a iydzpwz-vpm-wtavl balloon dilator to 12 mm13.5 mm15 mm16.5 mm. Biopsies of lower esophagus taken. The patient tolerated the procedure well. IMPRESSION: 1. Benign-appearing distal esophageal stricture dilated with a gibuspy-kkt-dlwxx balloon dilator. 2. Small hiatal hernia. 3. Biopsies of the duodenum, antrum and body and lower esophagus. RECOMMENDATIONS: The findings of this examination were discussed with the patient and her family. Okay to resume diet. Okay to resume medications. Await pathology from biopsies. Continue Protonix therapy.
[2021-03-14 09:40] VITALS: BP 118/69; PULSE 72
[2021-03-14 09:44] LABS: Glucose,Whole Blood 126 mg/dL (75-99)
== END 2021-03-14 09:53 | disposition home or self-care (01) ==
LOC: ORWHC2ENDO 07:21
PROVIDERS: ATTEND Internal Medicine
DX: K22.2 Esophageal obstruction (principal); K44.9 Diaphragmatic hernia without obstruction or gangrene; K29.60 Other gastritis without bleeding; E11.9 Type 2 diabetes mellitus without complications; E78.5 Hyperlipidemia, unspecified; Z79.899 Other long term (current) drug therapy
CPT/HCPCS: 88305; 43239; 43249; J2001; J2704; C1726 ×2

== ENCOUNTER → 2022-02-18 | Outpatient (CLI) | payer BC ==
--- NOTE | 2022-02-19 09:50 | MM ---
Reason for exam: screening (asymptomatic). Last mammogram was performed 1 year and 4 months ago. History: Patient is postmenopausal. Family history of breast cancer in paternal aunt at age 80 and breast cancer in paternal cousin at age 50. Physical Findings: A clinical breast exam by your physician is recommended on an annual basis and results should be correlated with mammographic findings. MG 3D Screening Mammo W/Cad Bilateral CC and MLO view(s) were taken. Prior study comparison: October 08, 2020, bilateral MG 3d screening mammo w/cad. May 17, 2018, bilateral MG 3d screening mammo w/cad. There are scattered fibroglandular densities. There are benign appearing round, vascular lesion calcifications bilaterally. There is no discrete abnormality. ASSESSMENT: Benign, BI-RAD 2 RECOMMENDATION: Routine screening mammogram of both breasts in 1 year.
== END | disposition home or self-care (01) ==
LOC: RADMAMWWP 10:08
PROVIDERS: ATTEND Family Medicine
DX: Z12.31 Encounter for screening mammogram for malignant neoplasm of breast (principal); Z78.0 Asymptomatic menopausal state; Z80.3 Family history of malignant neoplasm of breast
CPT/HCPCS: 77063; 77067

== ENCOUNTER → 2023-03-11 | Outpatient (CLI) | payer BC ==
--- NOTE | 2023-03-11 10:09 | MM ---
Reason for Exam: Screening (asymptomatic). Last mammogram was performed 1 year(s) and 1 month(s) ago. Patient History: Menarche at age 14. First Full-Term at age 27. Postmenopausal. Patient has history of breast feeding. Paternal cousin had breast cancer, age 50. Paternal aunt had breast cancer, age 80. Risk Values: Wendie 5 year model risk: 1.8%. NCI Lifetime model risk: 6.9%. Prior Study Comparison: 05/17/2018 Bilateral Screening Mammogram, [facility]. 10/08/2020 Bilateral Screening Mammogram, [facility]. 02/18/2022 Bilateral Screening Mammogram, [facility]. Tissue Density: There are scattered fibroglandular densities. Findings: Analyzed By CAD. There is no suspicious group of microcalcifications or new suspicious mass in either breast. Overall Assessment: Negative, BI-RAD 1 Management: Screening Mammogram of both breasts in [address] [facility] will attempt to contact patient to return for supplemental views and ultrasound if indicated. Patient should continue monthly self-breast exams. A clinical breast exam by your physician is recommended on an annual basis. This exam should not preclude additional follow-up of suspicious palpable abnormalities. Note on Wendie scores and lifetime risk: 1. A Wendie score greater than 3% is considered moderate risk. If this is the case, consider specialist referral to assess eligibility for a risk reducing agent. 2. If overall lifetime risk for the development of breast cancer is 20% or higher, the patient may qualify for future screening with alternating mammogram and breast MRI. Electronically signed and approved by: Rico To DO
== END | disposition home or self-care (01) ==
LOC: RADMAMWWP 07:42
PROVIDERS: ATTEND Family Medicine
DX: Z12.31 Encounter for screening mammogram for malignant neoplasm of breast (principal); Z78.0 Asymptomatic menopausal state; Z80.3 Family history of malignant neoplasm of breast
CPT/HCPCS: 77063; 77067

== ENCOUNTER → 2024-07-21 | Outpatient (CLI) | payer MEDICARE ==
--- NOTE | 2024-07-24 12:59 | MM ---
Reason for Exam: Screening (asymptomatic). Last mammogram was performed 1 year(s) and 4 month(s) ago. Patient History: Menarche at age 14. First Full-Term at age 27. Postmenopausal. Patient has history of breast feeding. Paternal cousin had breast cancer, age 50. Paternal aunt had breast cancer, age 80. Risk Values: Wendie 5 year model risk: 1.9%. NCI Lifetime model risk: 6.4%. Prior Study Comparison: 10/08/2020 Bilateral Screening Mammogram, [facility]. 02/18/2022 Bilateral Screening Mammogram, [facility]. 03/11/2023 Bilateral MG 3D screening mammo w/cad, [facility]. Tissue Density: There are scattered areas of fibroglandular density. Findings: Analyzed By CAD. The pattern is symmetrical. Benign vascular calcifications within the left breast. Benign spherical punctate calcifications are present bilaterally. No suspicious groups of microcalcifications, spiculated or lobular masses, architectural distortion or other secondary signs of malignancy are mammographically apparent. Overall Assessment: Benign, BI-RAD 2 Management: Screening Mammogram of both breasts in 1 year. A negative mammogram report should not preclude additional follow up of suspicious palpable abnormalities. Patient should continue monthly self breast exam. A clinical breast exam by your physician is recommended on an annual basis and results should be correlated with mammographic findings. Note on Wendie scores and lifetime risk: 1. A Wendie score greater than 3% is considered moderate risk. If this is the case, consider specialist referral to assess eligibility for a risk reducing agent. 2. If overall lifetime risk for the development of breast cancer is 20% or higher, the patient may qualify for future screening with alternating mammogram and breast MRI. [facility], , 07/24/2024 12:56 PM. Electronically signed and approved by: Duglas Son D.O. Radiologis
== END | disposition home or self-care (01) ==
LOC: RADMAMWWP 08:52
PROVIDERS: ATTEND Family Medicine
DX: Z12.31 Encounter for screening mammogram for malignant neoplasm of breast
CPT/HCPCS: 77063; 77067